=== PATIENT | female | born 1955 | race Caucasian/White ===

== ENCOUNTER 2018-04-30 00:18 | Inpatient (IN) ==
[2018-04-30] MEDS ORDERED: DUONEB (A & A) INH ONE (00:52)
[2018-04-30 01:44] LABS: BASO# 0.04 X1000 (0.0-0.2); BASO% 0.3 % (0.0-0.8); EOS# 0.06 X1000 (0.0-0.7); EOS% 0.4 % (0.0-10.0); HEMATOCRIT 37.5 % (37.0-47.0); HEMOGLOBIN 12.7 g/dL (12.0-16.0); IMM GRAN# 0.04 X1000 (0.0-0.04); IMM GRAN% 0.3 % (0.0-0.5); LYMPH# 1.08 X1000 (1.2-3.4); LYMPH% 7.3 % (20.5-51.1); MCH 32.1 PG (27-31); MCHC 33.9 g/dL (33-37); MCV 94.7 FL (81-99); MONO# 2.32 X1000 (0.11-0.59); MONO% 15.6 % (1.7-9.3); MPV 9.4 FL (7.4-10.4); NEUT# 11.29 X1000 (1.4-6.5); NEUT% 76.1 % (42.2-75.2); PLT 321 X1000 (130-400); RBC 3.96 XMIL (4.2-5.4); RDW 12.8 % (11.5-14.5); WBC 14.83 X1000 (4.8-10.8)
[2018-04-30 02:13] LABS: AGAP 14; ALB/GLOB RATIO 1.2; ALBUMIN 3.8 g/dL (3.5-5.0); ALKALINE PHOSPHATASE 73 U/L (32-104); BUN 7 mg/dL (8-22); CALCIUM 8.8 mg/dL (8.8-10.2); CHLORIDE 100 mmol/L (98-107); COSMO 277; CREATININE 0.5 mg/dL (0.5-0.9); ESTIMATED GFR > 60; GLUCOSE 190 mg/dL (70-104); GOT 10 U/L (10-30); GPT 12 U/L (10-36); POTASSIUM 3.4 mmol/L (3.5-5.1); SODIUM 137 mmol/L (136-145); TCO2 23 mmol/L (25-35); TOTAL BILIRUBIN 0.31 mg/dL (0.20-1.00)
[2018-04-30] MEDS ORDERED: LEVAQUIN 750 MG/D5W 750 MG/150 ML IVPB IV ONE (03:36)
[2018-04-30] MEDS ORDERED: SOLU-MEDROL IV ONE (03:36)
[2018-04-30] MEDS ORDERED: ZOFRAN IV PRN (04:50)
--- NOTE | 2018-04-30 05:29 | Diag Imaging Result Doc PS360 ---
EXAM: CHEST-2 VIEWS HISTORY: prod cough TECHNIQUE: Chest two views COMPARISON: 02/14/2017 FINDINGS: The lungs are hyperexpanded with an increased AP diameter to the chest. The heart is not enlarged. The vessels are not distended. No consolidation. Mild increased interstitial markings. No pleural effusions. IMPRESSION: Severe emphysema with fibrosis Electronically signed by Anjum Gan 04/30/2018 5:27 AM
[2018-04-30] MEDS: LOVENOX SUBQ SCH (05:30)
[2018-04-30] MEDS: NICODERM PATCH TD SCH (05:41)
--- NOTE | 2018-04-30 05:52 | Diag Imaging Result Doc PS360 ---
EXAM: CT THORAX W/O CONTRAST HISTORY: Worsening Dyspnea TECHNIQUE: Emergency CT chest without contrast COMPARISON: 06/15/2017 FINDINGS: No pleural effusions. No cardiomegaly. No thoracic aortic aneurysm. There are small to moderate-sized mediastinal nodes. Severe emphysema. Minimal increased interstitial markings bilaterally in the mid and lower lungs have developed since the prior study. No consolidation. Mild bronchial wall thickening. IMPRESSION: 1.Severe emphysema 2.Tiny bilateral infiltrates A preliminary report was given at 4:13 AM This exam was performed using automated exposure control, adjustment of mA or kV according to patient size, and/or use of iterative reconstruction technique. Electronically signed by Anjum Gan 04/30/2018 5:49 AM
[2018-04-30] MEDS ORDERED: NICODERM PATCH TD SCH (09:00)
--- NOTE | 2018-04-30 09:33 | HISTORY AND PHYSICAL ---
Patient of Dr. Ponce. REASON FOR ADMISSION: One week history of dyspnea. Ms. Catherine Walker is a 62-year-old lady with a past medical history of COPD who smokes 3 packs a day. She states that she has been getting progressively short of breath for the last [address] Ponce 3 days ago and he called in additional steroids which have not helped her. She normally uses her nebulizer treatment twice a day to get through the day, but states over the last couple of days, she has had to use it every 3-4 hours with minimal relief. Says her exercise tolerance has gotten progressively worse over the last 3 days and is barely able to walk 10 feet before she becomes very short of breath. Admits to having PND and orthopnea for the last 3 days. Admits to having subjective fever for the last 3 days. She is coughing up white yellowish sputum but no blood. No edema. No chest pain. REVIEW OF SYSTEMS: Notable for left upper quadrant tenderness which she has every now and again and thinks it might be her stomach. No GI or complaints. No focal neurological complaints. Review of system 12 system review was done and positive findings per HPI. ALLERGIES: Omeprazole and Nexium. HOME MEDICATIONS: Have not been reconciled at this time but did note that she had been taking Spiriva and DuoNeb and Breo. FAMILY HISTORY: Notable for heart disease and COPD in first degree relatives. SURGICAL HISTORY: 1. She has had a local polyp excised. 2. Lumbar spine surgery. SOCIAL HISTORY: She smokes about 2-3 packs a day and drinks about 3 beers. No illicit drug use. Lives alone. LAB WORK: Notable for white count of 15,000, H and H 12 and 37, platelets 321,000 with 75% neutrophils. Potassium is 3.4. Glucose 190. Chest film reviewed by me does show findings consistent with emphysematous changes. No overt infiltrate noted. PHYSICAL EXAMINATION: VITAL SIGNS: Blood pressure 115/63, heart rate 88, respirations 15, temperature 98.8 degrees, 97% O2 sat on room air. GENERAL: She is a middle-aged woman who is in acute respiratory distress. She is having a hard time making complete sentences. She is alert and oriented to person and time with normal mood and affect. HEENT: Head is normocephalic, atraumatic.Eyes PERRL, EOMI. Anicteric, not pale. ENT and oropharyngeal exam is grossly normal. No central cyanosis. NECK: Supple. No JVD, carotid bruits or thyromegaly. CHEST: Significant decreased air entry in both lung chin with expiratory wheezes. CARDIOVASCULAR: First and second heart sounds heard. No gallops or rubs. Rhythm is regular. ABDOMEN: Full, soft with minimal left upper quadrant tenderness. No rebound or guarding. Bowel sounds are normal. RECTAL: Deferred at this time. EXTREMITIES: Distal pulses have good volume, symmetrical and regular. No edema, clubbing or peripheral cyanosis. NEUROLOGICAL: No asterixis. SKIN: Intact with no breakdown, lesions or erythema. MUSCULAR: Grossly normal. ASSESSMENT: 1. Acute COPD exacerbation. 2. Nicotine dependent. PLAN: The patient will be started on empiric antibiotics to cover for pseudomonas. The CT scan was ordered primarily because of the possibility that she may have underlying pneumonia since she failed outpatient treatment and has subjective fever, white count and yellowish sputum. We will start patient on moderate doses of steroids, short and long-acting bronchodilators. Smoking cessation was reiterated. Patient says she plans to quit when she is discharged. Moderate to high doses of NicoDerm patches to decrease risk of nicotine withdrawal. Provided patient with home O2. Transfer the patient to Dr. Ponce' service in the a.m. cc: MD Tello Montalvo MD
[2018-04-30] MEDS: BROVANA NEB INH SCH ×2 (09:54→19:35)
[2018-04-30] MEDS: DUONEB (A & A) INH SCH ×3 (09:54→19:35)
[2018-04-30] MEDS: TYLENOL PO PRN ×2 (10:43→16:57)
[2018-04-30] MEDS: SOLU-MEDROL IV SCH ×3 (10:44→21:44)
--- NOTE | 2018-04-30 11:32 | PROGRESS NOTE ---
DATE: 04/30/2018 SHE: A 62-year-old white female patient admitted with chest congestion, cough, increasing shortness of breath, not responding to her outpatient treatment. Admission history physical, chest x-ray and CT scan results reviewed. The patient's CT scan did reveal pneumonia. The patient is still complaining of shortness of breath with minimal exertion. The patient is on IV antibiotics, IV steroid, bronchodilator treatment which will continue. OBJECTIVE: Vital Signs:: Vital signs noted. Neck: Supple. No JVD. Lungs: Bilateral occasional wheezing. CVS: S1 and S2 heard. Abdomen: Soft, nontender. Bowel sounds present. TELEPHONE MAINTENANCE MECHANIC: Alert, awake, able to move all 4 limbs. PLAN: Plan is to continue current treatment. Close observation. Encourage smoking cessation. We will continue home medicine. cc: MD Tello Vasquez MD
[2018-04-30] MEDS: ROCEPHIN 1 GM in NS 50 ML IV SCH (12:03)
[2018-04-30] MEDS ORDERED: BLISTEX MEDICATED BERRY LIP BALM TOP ONE (16:50)
[2018-04-30] MEDS: ADVAIR 500/50 DISKUS INH SCH (19:35)
[2018-04-30] MEDS ORDERED: PNEUMOVAX 23 IM ONE (21:33)
[2018-04-30] MEDS: ZANTAC PO SCH (21:44)
[2018-04-30] MEDS: MUCINEX PO SCH (22:17)
[2018-05-01] MEDS: NICODERM PATCH TD SCH ×2 (03:24→06:02)
[2018-05-01] MEDS: LEVAQUIN 750 MG/D5W 750 MG/150 ML IVPB IV SCH ×2 (03:24→04:26)
[2018-05-01] MEDS: LOVENOX SUBQ SCH ×2 (03:24→04:26)
[2018-05-01] MEDS: TYLENOL PO PRN ×3 (03:24→16:57)
[2018-05-01] MEDS: SOLU-MEDROL IV SCH ×4 (03:32→21:24)
[2018-05-01] MEDS: DUONEB (A & A) INH SCH ×4 (03:35→21:10)
[2018-05-01 06:59] LABS: BASO# 0.02 X1000 (0.0-0.2); BASO% 0.1 % (0.0-0.8); EOS# 0.04 X1000 (0.0-0.7); EOS% 0.2 % (0.0-10.0); HEMATOCRIT 37.3 % (37.0-47.0); HEMOGLOBIN 12.5 g/dL (12.0-16.0); IMM GRAN# 0.22 X1000 (0.0-0.04); IMM GRAN% 1.2 % (0.0-0.5); LYMPH# 1.02 X1000 (1.2-3.4); LYMPH% 5.6 % (20.5-51.1); MCH 31.7 PG (27-31); MCHC 33.5 g/dL (33-37); MCV 94.7 FL (81-99); MONO# 1.39 X1000 (0.11-0.59); MONO% 7.6 % (1.7-9.3); MPV 9.4 FL (7.4-10.4); NEUT# 15.66 X1000 (1.4-6.5); NEUT% 85.3 % (42.2-75.2); PLT 373 X1000 (130-400); RBC 3.94 XMIL (4.2-5.4); RDW 12.5 % (11.5-14.5); WBC 18.35 X1000 (4.8-10.8)
[2018-05-01 07:04] LABS: AGAP 17; BUN 9 mg/dL (8-22); CALCIUM 8.5 mg/dL (8.8-10.2); CHLORIDE 99 mmol/L (98-107); COSMO 280; CREATININE 0.6 mg/dL (0.5-0.9); ESTIMATED GFR > 60; GLUCOSE 201 mg/dL (70-104); POTASSIUM 3.6 mmol/L (3.5-5.1); SODIUM 138 mmol/L (136-145); TCO2 22 mmol/L (25-35)
[2018-05-01] MEDS: MUCINEX PO SCH ×2 (08:25→21:23)
[2018-05-01] MEDS: ZANTAC PO SCH ×2 (08:29→21:23)
--- NOTE | 2018-05-01 08:41 | PROGRESS NOTE ---
DATE: 05/01/2018 HISTORY: A 62-year-old, white, female patient with a known case of COPD. Admitted with chest congestion, cough, expectoration, increasing shortness of breath. Chest CT did reveal bilateral infiltrates. The patient is doing fair. She does get short of breath with minimal exertion. The patient is still coughing. Some chest soreness when she coughs. The patient was also complaining of stress urinary incontinence. Denied abdominal pain, nausea, vomiting. No diarrhea, blood or mucus in the stool. No typical chest pain or palpitations. Past medical history significant for COPD, tobacco abuse, depression, low back pain. OBJECTIVE: Vital Signs: Blood pressure 108/60, pulse 81, respirations 16, temperature 97.5 degrees. Skin: No rash. HEENT: Head atraumatic, normocephalic. [place] conjunctivae. Anicteric sclerae. Extraocular muscle movement normal. Fundus cannot be penetrated. Good oral hygiene. No tonsillopharyngeal congestion or exudate. Ears and nose benign. Neck: Supple. No JVD, thyromegaly, or lymphadenopathy. Chest: Bilateral expiratory wheezing. No movement of accessory muscles of respiration at rest. CVS: S1 and S2 heard. No gallop or thrill. Abdomen: Soft, nontender. Bowel sounds present. Extremities: No cyanosis, clubbing. No acute DVT. AUTO SERVICE WRITER: Alert, awake. Able to move all 4 limbs. Laboratory Data: Lab data did reveal hyperglycemia. Blood sugar was 201. I am going to get hemoglobin A1c level. CBC did reveal leukocytosis with a left shift. Chest CT results reviewed and discussed with the patient. CONSIDERATION: 1. Chronic obstructive pulmonary disease exacerbation. 2. Pneumonia. 3. Tobacco abuse. 4. Stress urinary incontinence. 5. Depression. 6. Gastritis and reflux disease. PLAN: Continue current treatment. Smoking cessation. The patient is on Rocephin and Levaquin. We will continue. I will treat her low-normal potassium. cc: MD Tello Vasquez MD
[2018-05-01 08:54] LABS: HEMOGLOBIN A1C 5.2 % (4.8-6.0)
[2018-05-01] MEDS ORDERED: PROZAC PO SCH (09:00)
[2018-05-01] MEDS: ADVAIR 500/50 DISKUS INH SCH ×2 (10:32→19:00)
[2018-05-01] MEDS: BROVANA NEB INH SCH ×2 (10:32→22:00)
[2018-05-01] MEDS: ROCEPHIN 1 GM in NS 50 ML IV SCH (10:58)
[2018-05-01] MEDS: PROZAC PO SCH (21:23)
[2018-05-02] MEDS: DUONEB (A & A) INH SCH ×4 (03:30→21:00)
[2018-05-02] MEDS: SOLU-MEDROL IV SCH ×3 (04:26→20:55)
[2018-05-02] MEDS: LEVAQUIN 750 MG/D5W 750 MG/150 ML IVPB IV SCH (04:26)
[2018-05-02] MEDS: LOVENOX SUBQ SCH (04:26)
[2018-05-02] MEDS: TYLENOL PO PRN ×3 (04:32→20:55)
[2018-05-02] MEDS: NICODERM PATCH TD SCH (06:22)
[2018-05-02] MEDS ORDERED: BROVANA NEB ONE (07:40)
[2018-05-02] MEDS: BROVANA NEB INH SCH ×2 (07:53→21:00)
[2018-05-02] MEDS: ADVAIR 500/50 DISKUS INH SCH ×2 (07:56→21:00)
[2018-05-02] MEDS: MUCINEX PO SCH ×2 (09:54→20:55)
[2018-05-02] MEDS: ZANTAC PO SCH ×2 (09:54→20:55)
[2018-05-02] MEDS: ROCEPHIN 1 GM in NS 50 ML IV SCH (10:51)
[2018-05-02] MEDS: PROZAC PO SCH (20:55)
--- NOTE | 2018-05-03 01:36 | PROGRESS NOTE ---
DATE: 05/02/2018 SUBJECTIVE: A 62-year-old white female admitted to the hospital over the weekend for acute COPD exacerbation. Interval history was reviewed since admission. PAST MEDICAL HISTORY: Reviewed. PAST SURGICAL HISTORY: Reviewed. MEDICINES: Reviewed. ALLERGIES: Prilosec. REVIEW OF SYSTEMS: Complains of shortness of breath, productive cough. No chest pain. No swelling of feet. Quit smoking 3 months ago. OBJECTIVE: Vital Signs: Temperature is 98, pulse is 87, blood pressure is 138/77, O2 sat is 94% on room air. HEENT: Within normal limits. Chronic hoarseness of voice noted. Chest: Bilateral expiratory wheezing. Heart: Distant heart sounds. Abdomen: Soft, nontender. Good bowel sounds. No masses palpable. Extremities: No peripheral edema. Neurologic: No neurological deficits. LABORATORY DATA: 1. CBC: White cell count 18, hematocrit 37, platelets 373,000. SMA 7 is normal. LFTs were normal. Blood cultures were negative. Sputum cultures are pending. 2. Chest CT with severe emphysema, tiny bilateral infiltrates. Chest x-ray with COPD. A1c 5.2. ASSESSMENT AND PLAN: 1. The patient is a 62-year-old white female admitted to the hospital for chronic obstructive pulmonary disease exacerbation with bronchitis. Currently receiving Brovana, Advair, Levaquin and intravenous steroids. Currently on nicotine patch and also ceftriaxone. 2. Depression on Prozac. 3. Continue guaifenesin. 4. Deep venous prophylaxis with Lovenox. 5. Gastrointestinal prophylaxis with Zantac. 6. We will repeat the blood workup in the morning. LEVEL OF DOCUMENTATION: 25 minutes. cc: Tello Ponce MD
[2018-05-03] MEDS: DUONEB (A & A) INH SCH ×4 (03:30→19:51)
[2018-05-03] MEDS: LOVENOX SUBQ SCH (04:11)
[2018-05-03] MEDS: SOLU-MEDROL IV SCH ×3 (04:11→21:58)
[2018-05-03] MEDS: LEVAQUIN 750 MG/D5W 750 MG/150 ML IVPB IV SCH (04:11)
[2018-05-03] MEDS: NICODERM PATCH TD SCH ×2 (04:12→04:56)
[2018-05-03 06:37] LABS: BASO# 0.08 X1000 (0.0-0.2); BASO% 0.4 % (0.0-0.8); HEMATOCRIT 36.8 % (37.0-47.0); IMM GRAN# 0.99 X1000 (0.0-0.04); IMM GRAN% 5.4 % (0.0-0.5); LYMPH# 1.74 X1000 (1.2-3.4); LYMPH% 9.6 % (20.5-51.1); MCH 31.4 PG (27-31); MCHC 32.6 g/dL (33-37); MCV 96.3 FL (81-99); MONO# 1.01 X1000 (0.11-0.59); MONO% 5.6 % (1.7-9.3); MPV 9.2 FL (7.4-10.4); NEUT# 14.37 X1000 (1.4-6.5); PLT 411 X1000 (130-400); RBC 3.82 XMIL (4.2-5.4); RDW 13.2 % (11.5-14.5); WBC 18.19 X1000 (4.8-10.8)
[2018-05-03 06:41] LABS: AGAP 10; BUN 12 mg/dL (8-22); CALCIUM 8.8 mg/dL (8.8-10.2); CHLORIDE 101 mmol/L (98-107); CK PROFILE 41 U/L (24-173); COSMO 283; CREATININE 0.5 mg/dL (0.5-0.9); ESTIMATED GFR > 60; GLUCOSE 171 mg/dL (70-104); POTASSIUM 4.3 mmol/L (3.5-5.1); SODIUM 140 mmol/L (136-145); TCO2 29 mmol/L (25-35)
[2018-05-03 07:01] LABS: LYMPHS 6 % (21-51); MONO 2 % (1-9); SEGS 92 % (42-75)
[2018-05-03] MEDS ORDERED: BROVANA NEB ONE ×2 (07:24)
[2018-05-03] MEDS: MUCINEX PO SCH ×2 (08:12→21:58)
[2018-05-03] MEDS: ZANTAC PO SCH ×2 (08:12→21:58)
[2018-05-03] MEDS: TYLENOL PO PRN ×2 (08:15→17:06)
[2018-05-03] MEDS: BROVANA NEB INH SCH ×2 (09:44→19:50)
[2018-05-03] MEDS: ADVAIR 500/50 DISKUS INH SCH ×2 (09:44→19:50)
[2018-05-03] MEDS: ROCEPHIN 1 GM in NS 50 ML IV SCH (10:23)
--- NOTE | 2018-05-03 19:15 | PROGRESS NOTE ---
DATE: 05/03/2018 SUBJECT: Patient still shortness of breath, cough and wheezing. PFTs were done last year. OBJECTIVE: Temperature is 98 degrees, vitals are stable, 91% room air.HEENT: Within normal limits. Chronic laryngitis changes noted. Chest: Bilateral wheezing. Heart: Sounds are very distant. Belly: Soft, nontender. No neurological deficits. INVESTIGATIONS: White cell count 18, hematocrit 36, platelets 411,000, SMA 7 was normal. Cardiac enzymes were negative. ProBNP 1200. ASSESSMENT AND PLAN: 1. Acute chronic obstructive pulmonary disease exacerbation. Sputum cultures were negative. Plan is bronchodilators with Brovana, Advair, Spiriva. Continue IV steroids, IV antibiotics with Levaquin, ceftriaxone. 2. Chronic laryngitis stable. 3. Deep vein thrombosis, gastrointestinal prophylaxis as per the order sheet and previous pulmonary function test moderate chronic obstructive pulmonary disease changes. Patient was advised to continue to abstain from smoking. Will follow up. LEVEL OF DOCUMENTATION: 25 minutes. cc: Tello Ponce MD
[2018-05-03] MEDS: PROZAC PO SCH (21:58)
[2018-05-04] MEDS: DUONEB (A & A) INH SCH ×4 (03:24→21:15)
[2018-05-04] MEDS: NICODERM PATCH TD SCH (04:36)
[2018-05-04] MEDS: SOLU-MEDROL IV SCH ×3 (04:37→20:47)
[2018-05-04] MEDS: TYLENOL PO PRN ×3 (04:37→20:47)
[2018-05-04] MEDS: LEVAQUIN 750 MG/D5W 750 MG/150 ML IVPB IV SCH (04:37)
[2018-05-04] MEDS: LOVENOX SUBQ SCH (04:37)
[2018-05-04] MEDS ORDERED: BROVANA NEB ONE ×2 (07:13)
[2018-05-04] MEDS: MUCINEX PO SCH ×2 (08:40→20:47)
[2018-05-04] MEDS: ZANTAC PO SCH ×2 (08:40→20:47)
[2018-05-04] MEDS: ADVAIR 500/50 DISKUS INH SCH ×2 (09:19→21:36)
[2018-05-04] MEDS: BROVANA NEB INH SCH ×2 (09:20→21:15)
[2018-05-04] MEDS: ROCEPHIN 1 GM in NS 50 ML IV SCH (10:22)
--- NOTE | 2018-05-04 18:25 | PROGRESS NOTE ---
DATE: 05/04/2018 SUBJECTIVE: The patient is a little better. Still wheezing. REVIEW OF SYSTEMS: None reported. OBJECTIVE: Vital signs: Temperature is 98.5, pulse 73, blood pressure 120/66 and 94% on room air. HEENT: Within normal limits. Neck: Supple. No lymphadenopathy. Chest: Bilateral wheezing with decreasing distant heart sounds. Heart: Belly is soft, nontender. No obvious neurological deficits. ASSESSMENT AND PLAN: Acute chronic obstructive pulmonary disease exacerbation, continue present medical therapy, and sputum cultures. Normal abby. Blood cultures were negative. DVT and GI prophylaxis. As per order sheet and will follow up. LEVEL OF DOCUMENTATION: 15 minutes. cc: Tello Ponce MD
[2018-05-04] MEDS: PROZAC PO SCH (20:47)
[2018-05-05] MEDS: DUONEB (A & A) INH SCH ×2 (03:20→09:04)
[2018-05-05] MEDS: SOLU-MEDROL IV SCH (04:47)
[2018-05-05] MEDS: LEVAQUIN 750 MG/D5W 750 MG/150 ML IVPB IV SCH (04:47)
[2018-05-05] MEDS: LOVENOX SUBQ SCH (04:48)
[2018-05-05] MEDS: NICODERM PATCH TD SCH (04:48)
[2018-05-05] MEDS: TYLENOL PO PRN (04:58)
[2018-05-05] MEDS ORDERED: BROVANA NEB ONE ×2 (07:12)
[2018-05-05 07:34] VITALS: BP 129/75
[2018-05-05] MEDS: MUCINEX PO SCH (07:44)
[2018-05-05] MEDS: ZANTAC PO SCH (07:44)
[2018-05-05] MEDS ORDERED: PREVNAR 13 IM ONE (08:02)
[2018-05-05] MEDS: ADVAIR 500/50 DISKUS INH SCH (09:04)
[2018-05-05] MEDS: BROVANA NEB INH SCH (09:04)
--- NOTE | 2018-05-08 23:19 | DISCHARGE SUMMARY ---
ADMISSION DATE: 04/30/2018 DISCHARGE DATE: 05/05/2018 DISCHARGING DIAGNOSIS: Acute chronic obstructive pulmonary disease exacerbation. SECONDARY DIAGNOSIS: 1. Chronic laryngitis. 2. Acid reflux disease. BRIEF HISTORY: Please see the H and P that was done by hospitalist. In brief she is a 62-year- old white female admitted to the hospital with shortness of breath, cough, and wheezing. Patient was given oxygen, bronchodilators, IV steroids, IV antibiotics. The patient got better. During this hospital course chest CT was done it showed severe emphysema, tiny bilateral infiltrates. Previous pulmonary function test moderate COPD. LABS: CBC. White cell count 18, hematocrit 36, platelets 411,000. SMA 7 is normal. Glucose 171, A1c 5.2. Cardiac enzymes were normal. ProBNP slightly elevated. Chest x- ray showed emphysema. She got better for baseline discharged home in a stable condition. The patient did receive a pneumococcal vaccine and Initiate vaccination protocol prior to the discharge with pneumococcal vaccine 13 and Spiriva 1 puff daily, Zantac 150 p.o. b.i.d., guaifenesin 1200 p.o. b.i.d., Fluoxetine 20 mg daily, Advair 250/50 one puff p.o. b.i.d., Brovana inhalation 1 puff b.i.d., Levaquin 500 daily for 10 days. Follow up in my office next week. cc: Tello Ponce MD [facility]
== END 2018-05-05 09:32 | disposition home or self-care (01) | DRG 192 ==
LOC: SUPCPDRO → ED 00:18 → SUATTDRO 04:19 → 4N 04:19
PROVIDERS: ADMIT Internal Medicine; ATTEND Internal Medicine
CPT/HCPCS: 71020; 71046; 71250; 80048; 80053; 82550; 83036; 83735; 83880; 84145; 84484; 85025; 87040; 87070; 87205; 94640; 94761; 94799; 96374; 96375; 99285; A9270; J0696; J1650; J1956; J2920; J2930